=== PATIENT | female | born 1990 | race African-American/Black ===

== ENCOUNTER 2017-01-01 11:57 | Emergency (ER) | payer OTHER ==
[~2017-01-01 11:57] MED LIST: ANTIVERT25 MG PO; ASPIRIN EC81 MG PO; BACTRIM DS TAB1 EAC2 PO; CICLOPIROX30 GM TP; CYCLOBENZAPRINE5 M1 PO; DELTASONE20 MG PO; IMURAN50 M1 PO; MEDROL4 M2 PO; MOTRIN800 MG PO; NO HOME MEDICATION XX; NO HOME MEDS; OXYCODONE/APAP PO; PEN-VEE K500 MG PO; PHENERGAN25 MG PO; PREDNISONE10 M1 PO; PREDNISONE20 M1 PO; PRENATAL1 EACH PO; ULTRAM50 M1 PO; VENTOLIN HFA18 G2 PO; ZITHROMAX250 M1 PO; ZOFRAN ODT4 MG/UDTAB PO; ZOFRAN4 M1 PO
[2017-01-23] MEDS ORDERED: PRENATAL-U CAPS1 CAP PO (17:22)
[2017-01-23] MEDS ORDERED: PREDNISONE10 M1 PO (19:58)
[2017-01-23] MEDS ORDERED: TYLENOL WITH C1 EACH PO (19:58)
[2017-03-16] MEDS ORDERED: ONDANSETRON ODT8 M1 PO (19:35)
[2017-03-16] MEDS ORDERED: PLAQUENIL200 M1 PO (19:36)
== END 2017-01-01 14:11 | disposition left against medical advice (07) ==
LOC: EDMED 11:57
DX: R42 Dizziness and giddiness (principal); R06.02 Shortness of breath; Z53.21 Procedure and treatment not carried out due to patient leaving prior to being seen by health care provider